=== PATIENT | female | born 1980 | race Caucasian/White ===

== ENCOUNTER → 2019-11-14 13:34 | Outpatient (CLI) | payer BC, SELFPAY ==
--- NOTE | ~2019-11-14 | MM_ITS ---
EXAMINATION: MM screening indu BI w leanna HISTORY: Screening mammogram TECHNIQUE: Craniocaudal and mediolateral oblique 3-D tomosynthesis images were obtained and synthetic 2-D images were generated. CAD analysis was submitted and interpreted. COMPARISON: 01/12/2017 BREAST PARENCHYMAL COMPOSITION: There are scattered areas of fibroglandular density. FINDINGS: RIGHT BREAST: Focal asymmetry is present in the posterior third of the slightly outer breast 7 cm fro m the nipple. LEFT BREAST: There is no evidence of suspicious mass, calcification, or architectural distortion to s uggest malignancy. There has been no significant interval change. IMPRESSION: 1. Focal asymmetry of the right breast. 2. Additional mammographic views and possible breast ultrasound are recommended. BI-RADS Category 0: Incomplete: Needs additional imaging evaluation. Reviewed, dictated and finalized at location A. IMPRESSION: 1. Focal asymmetry of the right breast. 2. Additional mammographic views and possible breast ultrasound are recommended . BI-RADS Category 0: Incomplete: Needs additional imaging evaluation.
== END ==
PROVIDERS: Visit Provider Obstetrics & Gynecology
DX: Z12.31 Encounter for screening mammogram for malignant neoplasm of breast (principal); R92.8 Other abnormal and inconclusive findings on diagnostic imaging of breast
CPT/HCPCS: 77063; 77067

== ENCOUNTER 2020-01-13 17:06 | Outpatient (CLI) | payer BC, SELFPAY ==
--- NOTE | ~2020-01-13 | XR_ITS ---
XR chest 2V DATE: 01/13/2020 17:25 INDICATION: Worsening shortness of breath. Cough. An inhaler is not helping. TECHNIQUE: PA and lateral views COMPARISON: None FINDINGS: Normal heart size. No hilar or mediastinal enlargement. No pulmonary infiltrate or consolid ation, pleural effusion or pulmonary vascular congestion or pneumothorax. Included skeletal structure s are unremarkable other than mild levo scoliosis of the upper thoracic spine and mild degenerative s purring of the spine. IMPRESSION: No active cardiopulmonary disease Reviewed, dictated and finalized at location A.
== END 2020-01-13 17:07 | disposition home or self-care (01) ==
PROVIDERS: PCP Family Medicine; Visit Provider Family Medicine
DX: J02.8 Acute pharyngitis due to other specified organisms (principal); R06.02 Shortness of breath; R05 Cough
CPT/HCPCS: 71046

== ENCOUNTER 2020-01-27 16:31 | Outpatient (CLI) | payer BC, SELFPAY ==
--- NOTE | ~2020-01-27 | XR_ITS ---
EXAMINATION: XR sinus min 3V INDICATION: Right-sided nasal polyp TECHNIQUE: Five views of the paranasal sinuses are obtained. COMPARISON: 09/25/2003 FINDINGS: There is normal pneumatization of the paranasal sinuses. No definite nasal polyp is identif ied. There are 3 mm of rightward deviation of the nasal septum. The paranasal sinuses appear clear. T he facial bones are normal. There is mild cervical spondylosis. IMPRESSION: 1. No nasal polyp identified however sensitivity of radiographs is low. If there is high clinical kelton picion for sinus disease, further evaluation with CT of the sinuses is recommended. Reviewed, dictated and finalized at location A. IMPRESSION: 1. No nasal polyp identified however sensitivity of radiographs is low. If ther e is high clinical suspicion for sinus disease, further evaluation with CT of t he sinuses is recommended.
== END 2020-01-27 16:32 | disposition home or self-care (01) ==
PROVIDERS: PCP Family Medicine; Visit Provider Family Medicine
DX: J33.9 Nasal polyp, unspecified (principal)
CPT/HCPCS: 70220